=== PATIENT | male | born 1955 | race Caucasian/White ===

== ENCOUNTER 2018-06-17 07:42 | Day surgery (SDC) | payer BC ==
[2018-06-17] MEDS ORDERED: Aspirin 81 MG Tab.Chew PO ONE (07:51)
--- NOTE | 2018-06-17 08:12 | EDM.PDOC ---
ED HPI GENERAL MEDICAL PROBLEM - General Stated Complaint: RIGHT SIDED CHEST PAIN Time Seen by Provider: 06/17/18 07:48 Source of Information: Reports: Patient History Limitations: Reports: No Limitations - History of Present Illness INITIAL COMMENTS - FREE TEXT/NARRATIVE: This 62 yo male patient reports to the ED with right sided chest pain. The patient reports his pain started about 40 minutes prior to coming to the ED. The patient reports he has never had pain like this in his chest before. The patient reports the pain radiates to his right posterior shoulder. The patient reports he has not taken anything specifically for his current pain. The patient reports he was seen previously for possible gallbladder problems, but he has not had surgery. The patient reports he had toast with butter this morning for breakfast. Onset: Today Duration: Minutes: (40), Constant Location: Reports: Chest (right sided of chest radiating to right posterior shoulder) Quality: Reports: Ache, Sharp, Stabbing Severity: Severe Improves with: Reports: None Worsens with: Reports: None Context: Reports: Other Associated Symptoms: Reports: Chest Pain Treatments DISPLAY ASSOCIATE: Reports: NSAIDS (Aleve) Right Chest Pain Score (Numeric/FACES): 8 - Related Data Allergies Allergy/AdvReac Type Severity Reaction Status Date / Time pravastatin [From Pravachol] Allergy Joint Pain Verified 06/17/18 08:13 Home Meds: Home Meds Losartan [Cozaar] 100 mg PO DAILY 11/10/13 [History] Meclizine [Antivert] 12.5 mg PO Q4HR PRN 11/10/13 [History] Acetaminophen [Acetaminophen ER] 1,300 mg PO DAILY PRN 09/19/15 [History] Metoprolol Succinate [Toprol XL] 50 mg PO DAILY 09/19/15 [History] Methylcellulose [Citrucel] 1 dose PO DAILY PRN 06/05/16 [History] Tamsulosin HCl [Flomax] 0.4 mg PO DAILY PRN 06/06/16 [History] Finasteride 5 mg PO DAILY 06/17/18 [History] Oxybutynin Chloride [Ditropan Xl] 10 mg PO DAILY 06/17/18 [History] Past Medical History HEENT History: Reports: Impaired Vision Cardiovascular History: Reports: CAD, High Cholesterol, Hypertension Respiratory History: Reports: None Gastrointestinal History: Reports: GERD, GI Bleed Genitourinary History: Reports: BPH, Urinary Incontinence Musculoskeletal History: Reports: Arthritis Neurological History: Reports: None Psychiatric History: Reports: None Endocrine/Metabolic History: Reports: Obesity/BMI 30+ Hematologic History: Reports: Anemia, Blood Transfusion(s) Immunologic History: Reports: None Oncologic (Cancer) History: Reports: None Dermatologic History: Reports: None - Infectious Disease History Infectious Disease History: Reports: Chicken Pox, Measles, Mumps - Past Surgical History HEENT Surgical History: Reports: Oral Surgery, Other (See Below) Cardiovascular Surgical History: Reports: Other (See Below) GI Surgical History: Reports: Appendectomy, Colonoscopy, EGD, Other (See Below) Musculoskeletal Surgical History: Reports: Arthroscopic Knee Social & Family History - Caffeine Use Caffeine Use: Reports: Coffee Other Caffeine Use: AVERAGE OF 3 CUPS OF COFFEE DAILY - Living Situation & Occupation Living situation: Reports: , with Spouse Occupation: Employed ED ROS GENERAL - Review of Systems Review Of Systems: ROS reveals no pertinent complaints other than HPI. ED EXAM, GENERAL - Physical Exam Exam: See Below Exam Limited By: No Limitations General Appearance: Alert, WD/WN, Moderate Distress Eye Exam: Bilateral Eye: EOMI, Normal Inspection, PERRL Ears: Normal External Exam Nose: Normal Inspection, Normal Mucosa, No Blood Throat/Mouth: Normal Inspection, Normal Lips, Normal Teeth, Normal Gums, Normal Oropharynx, Normal Voice, No Airway Compromise Head: Atraumatic, Normocephalic Neck: Normal Inspection, Supple, Non-Tender, Full Range of Motion Respiratory/Chest: No Respiratory Distress, Lungs Clear, Normal Breath Sounds, No Accessory Muscle Use, Chest Non-Tender Cardiovascular: Normal Peripheral Pulses, Regular Rate, Rhythm, No Edema, No Gallop, No JVD, No Murmur, No Rub, Other (Patient rates his right sided chest pain at a 3/10 at the time of examination.) GI/Abdominal: Normal Bowel Sounds, Soft, Non-Tender, No Organomegaly, No Distention, No Abnormal Bruit, No Mass (Male) Exam: Deferred Rectal (Males) Exam: Deferred Back Exam: Normal Inspection, Full Range of Motion, NT Extremities: Normal Inspection, Normal Range of Motion, Non-Tender, Normal Capillary Refill, No Pedal Edema Neurological: Alert, Oriented, CN II-XII Intact, Normal Cognition, Normal Gait, Normal Reflexes, No Motor/Sensory Deficits Psychiatric: Normal Affect, Normal Mood Skin Exam: Warm, Dry, Intact, Normal Color, No Rash Lymphatic: No Adenopathy Course - Vital Signs Last Recorded V/S: Last Vital Signs Temp 36.6 C 06/17/18 07:45 Pulse 69 06/17/18 07:45 Resp 18 06/17/18 07:45 BP 168/79 H 06/17/18 07:45 Pulse Ox 98 06/17/18 07:45 - Orders/Labs/Meds Orders: Active Orders 24 hr Category Date Time Status EKG Documentation Completion [RC] URGENT Care 06/17/18 07:44 Active ceFAZolin [Ancef] 2 gm Med 06/17/18 10:57 Ordered Premix Bag 1 bag IV ONETIME Medication Orders Cefazolin Sodium/Dextrose 2 gm (/ Premix) 50 mls @ 100 mls/hr IV ONETIME ONE Stop: 06/17/18 11:26 Labs: Laboratory Tests 06/17/18 06/17/18 Range/Units 07:55 07:55 WBC 6.3 (5.0-10.0) 10^3/uL RBC 5.14 (4.6-6.2) 10^6/uL Hgb 15.6 D (14.0-18.0) g/dL Hct 44.8 (40.0-54.0) % MCV 87.2 (80-100) fL MCH 30.4 (27.0-34.0) pg MCHC 34.8 (33.0-35.0) g/dL Plt Count 182 (150-450) 10^3/uL Neut % (Auto) 62.9 (42.2-75.2) % Lymph % (Auto) 23.9 (20.5-50.1) % [place] % (Auto) 9.6 H (2-8) % Eos % (Auto) 3.0 (1.0-3.0) % Baso % (Auto) 0.6 (0.0-1.0) % Sodium 133 L (135-145) mmol/L Potassium 4.0 (3.6-5.0) mmol/L Chloride 101 (101-111) mmol/L Carbon Dioxide 21.0 (21.0-31.0) mmol/L Anion Gap 15.0 BUN 22 H (7-18) mg/dL Creatinine 0.8 (0.6-1.3) mg/dL Est Cr Clr Drug Dosing TNP Estimated GFR (MDRD) > 60 BUN/Creatinine Ratio 27.50 Glucose 151 H (74-105) mg/dL Calcium 8.6 (8.4-10.2) mg/dl Total Bilirubin 0.8 (0.2-1.0) mg/dL AST 31 (10-42) IU/L ALT 24 (10-60) IU/L Alkaline Phosphatase 61 (42-121) IU/L Troponin I < 0.02 (0.00-0.02) ng/ml Total Protein 6.4 L (6.7-8.2) g/dl Albumin 4.0 (3.2-5.5) g/dl Globulin 2.4 Albumin/Globulin Ratio 1.67 Amylase 102 H (28-100) U/L Lipase 38 (22-51) U/L Meds: Medications Generic Name Dose Route Start Last Admin Trade Name Freq PRN Reason Stop Dose Admin Cefazolin Sodium/Dextrose 2 gm 50 mls @ 100 mls/hr 06/17/18 10:57 / Premix IV 06/17/18 11:26 ONETIME ONE Discontinued Medications Generic Name Dose Route Start Last Admin Trade Name Freq PRN Reason Stop Dose Admin Aspirin 324 mg 06/17/18 07:51 06/17/18 07:58 Aspirin PO 06/17/18 07:52 324 mg ONETIME ONE Administration Morphine Sulfate 2 mg 06/17/18 08:20 06/17/18 08:29 Morphine IVPUSH 06/17/18 08:21 2 mg ONETIME ONE Administration Morphine Sulfate 2 mg 06/17/18 09:44 06/17/18 09:47 Morphine IVPUSH 06/17/18 09:45 2 mg ONETIME ONE Administration - Re-Assessments/Exams Free Text/Narrative Re-Assessment/Exam: 06/17/18 11:02 Dr. Flowers came to the ED to evaluate the patient. The patient will be scheduled to have a lap chani today with Dr. Flowers. Departure - Departure Time of Disposition: 11:02 Disposition: Admitted As Inpatient 65 Condition: Fair Clinical Impression: Gall stone Qualifiers: Cholecystitis presence: with cholecystitis Cholecystitis acuity: acute Biliary obstruction: with biliary obstruction Qualified Code(s): K80.01 - Calculus of gallbladder with acute cholecystitis with obstruction Care Plan Goals: Discussed the examination, history, lab, ultrasound and x-ray results with Dr. Flowers. Dr. Flowers accepted the patient for continued treatment at [facility] in [place]. - My Orders Last 24 Hours: My Active Orders 06/17/18 07:44 EKG Documentation Completion [RC] URGENT 06/17/18 10:57 ceFAZolin [Ancef] 2 gm Premix Bag 1 bag IV ONETIME - Assessment/Plan Last 24 Hours: My Active Orders 06/17/18 07:44 EKG Documentation Completion [RC] URGENT 06/17/18 10:57 ceFAZolin [Ancef] 2 gm Premix Bag 1 bag IV ONETIME
--- NOTE | 2018-06-17 08:12 | CR ---
Clinical history: 62-year-old male with history coronary artery disease and now chest pain reported on previous CT scan chest June 2016 to have "asymmetric elevation left hemidiaphragm with underlying lower lobe atelectasis". Reevaluate please. Interpretation: Poor inspiratory effort. Normal cardiac silhouette without cephalization of flow signs of alveolar edema or dependent new pleural fluid accumulation. Chronic left lower lobe atelectasis (bronchiectasis?). Clinical aspiration? No new lung mass, hilar lymphadenopathy or focal lobar pneumonia when compared to CT June 2016. Patito thorax unremarkable. No pneumothorax.
[2018-06-17] MEDS ORDERED: Morphine 2 MG/ML Syringe IVPUSH ONE ×2 (08:20→09:44)
[2018-06-17 08:22] LABS: CHLORIDE,CL 101 mmol/L (101-111); SODIUM,NA 133 mmol/L (135-145)
[2018-06-17] MEDS ORDERED: ceFAZolin 2 GM in Premix Bag 1 BAG IV ONE (10:57)
--- NOTE | 2018-06-17 11:33 | US ---
CLINICAL HISTORY: 62-year-old male with chest and right upper quadrant pain. INTERPRETATION: Abnormal. Tiny dependent intraluminal echogenic "shadowing" gallstones impacted neck of the gallbladder. Gallbladder normal size and anatomic configuration with uniformly thin wall shows no sign of pericystic fluid or mucosal wall polyp. Homogeneously echodense (fatty) liver without discrete intrahepatic cystic or solid mass lesion. No abnormal dilatation of the intra or extrahepatic biliary ducts (common bile duct measures 5 mm). Pancreas sonographically unremarkable, i.e., normal. Normal right kidney. No ascites. CONCLUSION: Cholelithiasis. Fatty liver.
--- NOTE | 2018-06-17 11:52 | HP ---
INTRODUCTION: This 62-year-old male presented to the emergency room today with right upper quadrant and right lower chest pain. Cardiac workup was negative. An ultrasound of the gallbladder showed a single large impacted stone in Alice pouch. He does not have an elevated white blood cell count, and his liver enzymes are normal. He has had several attacks like this before. This one right now has subsided since the patient has gotten pain relief. ALLERGIES: The patient has allergies to statins. MEDICATIONS: Current medications are: Metoprolol and lisinopril for blood pressure. PAST SURGICAL HISTORY: Includes sigmoidectomy for his diverticulitis. FAMILY HISTORY AND SOCIAL HISTORY: The patient lives here in [place]. He works as a software maintenance engineer. Does not smoke. REVIEW OF SYSTEMS: Negative for all systems. Cardiovascular: Normal. He has no emphysema, COPD, or shortness of breath. Cardiac: Normal. He has no chest pain. PHYSICAL EXAMINATION: HEENT: Normal. The patient wears glasses and sees adequately. Chest: Lungs are clear bilaterally. Heart: Normal sinus rhythm without murmur. Abdomen: Soft and nontender. No masses are noted. He has a lower midline abdominal incision from his colectomy. Extremities: Good range of motion. Neurologic: Intact. ASSESSMENT: Chronic cholecystitis and cholelithiasis with possible impaction of a gallstone. PLAN: I discussed the risks, benefits, and expected outcomes of proceeding with a laparoscopic cholecystectomy. We will do this today in the operating room. [facility] /[id number]
[2018-06-17] MEDS ORDERED: Acetaminophen/oxyCODONE 325-5 MG Tab PO PRN (14:33)
[2018-06-17] MEDS ORDERED: Ondansetron 4 MG/2 ML SDV IVPUSH PRN (14:33)
[2018-06-17] MEDS ORDERED: Morphine 2 MG/ML Syringe IVPUSH PRN (14:33)
[2018-06-17] MEDS ORDERED: Glycopyrrolate 0.2 MG/ML 2 ML SDV IV ONE (14:34)
[2018-06-17] MEDS ORDERED: Ondansetron 4 MG/2 ML SDV IV ONE (14:34)
[2018-06-17] MEDS ORDERED: Propofol 200 MG/20 ML SDV IV ONE (14:34)
[2018-06-17] MEDS ORDERED: Rocuronium 50 MG/5 ML Vial IV ONE (14:34)
[2018-06-17] MEDS ORDERED: fentaNYL 250 MCG/5 ML SDV IV ONE (14:34)
[2018-06-17] MEDS ORDERED: Midazolam 1 MG/ML 2 ML SDV IV ONE (14:34)
[2018-06-17] MEDS ORDERED: Neostigmine Methylsulfate 10 MG/10 ML MDV ONE (14:34)
[2018-06-17] MEDS ORDERED: Lactated Ringers 1,000 ML IV ONE (14:34)
[2018-06-17] MEDS ORDERED: Dexamethasone 4 MG/ML SDV IV ONE (14:34)
[2018-06-17] MEDS ORDERED: Lidocaine 2% 20 ML MDV INJECT ONE (14:34)
[2018-06-17] MEDS ORDERED: Ketorolac 30 MG/ML SDV IVPUSH ONE (14:34)
[2018-06-17] MEDS ORDERED: Sodium Chloride 0.9% 10 ML Syringe FLUSH PRN (14:36)
--- NOTE | 2018-06-17 15:27 | OR ---
DATE: 06/17/2018 PREOPERATIVE DIAGNOSES: 1. Chronic cholecystitis. 2. Cholelithiasis. POSTOPERATIVE DIAGNOSES: 1. Chronic cholecystitis. 2. Cholelithiasis. PROCEDURE: Laparoscopic cholecystectomy. ANESTHESIA: General. ESTIMATED BLOOD LOSS: Minimal. SPECIMEN: Gallbladder and stone. OPERATIVE FINDINGS: Normal-appearing gallbladder with 1 small stone. INDICATION FOR PROCEDURE: This 62-year-old male presented to the emergency room today with a [id number] right upper quadrant and lower right chest pain. Cardiac workup and chest workup in the emergency room were normal. An ultrasound of the gallbladder showed an impacted stone in Alice pouch. His liver enzymes are normal, and his white blood cell count was also normal. PROCEDURE IN DETAIL: After adequate preparation, an alternative access port was used to place a 5-mm trocar in the right upper quadrant under direct vision. Three other trocars were placed in the abdomen, and the abdomen was insufflated. Examination of the abdomen showed some periduodenal adhesions to the lower portion of the gallbladder. These were taken off by cautery dissection. The cystic triangle structures were dissected free, and the duct and artery were each triply clipped and divided. The gallbladder was then taken off the liver bed using blunt, sharp, and Bovie dissection. There was no spillage of bile. The gallbladder was then taken out through the epigastric trocar site. The abdomen was irrigated in the right upper quadrant and suctioned clear, and the abdomen was desufflated. The skin was closed with Monocryl. Opening the gallbladder in the operating room did show a small single stone and abnormal-appearing bile. [facility] /[id number]
[2018-06-18 08:02] VITALS: BP 137/68
--- NOTE | 2018-06-18 08:22 | PCM.SN ---
- Free Text/Narrative Note: Stable POD #1. PO tolerated well. Pain controlled. Wounds clean and dry. Discharge instructions given. No restrictions on diet or activity. Can discharge.
== END 2018-06-18 10:30 | disposition home or self-care (01) ==
LOC: DL.SDS 07:42 → DL.MS 14:33 → DL.SDS 14:33
PROVIDERS: ATTEND Surgery
DX: K80.10 Calculus of gallbladder with chronic cholecystitis without obstruction (principal); I10 Essential (primary) hypertension; E66.9 Obesity, unspecified; Z68.30 Body mass index [BMI] 30.0-30.9, adult; I25.10 Atherosclerotic heart disease of native coronary artery without angina pectoris; Z79.899 Other long term (current) drug therapy; E78.00 Pure hypercholesterolemia, unspecified; Z88.8 Allergy status to other drugs, medicaments and biological substances
CPT/HCPCS: 36415; 71045; 76705; 80053; 82150; 83690; 84484; 85025; 93005; 96365; 96375; 96376; 99285; A9270-GY; J0690; J1100; J1885; J2250; J2270; J2405; J2704; J2710; J3010; J3490; J7120

== ENCOUNTER 2022-08-22 17:47 | Emergency (ER) | payer BC ==
[2022-08-22 18:53] VITALS: BP 147/81; PULSE 79
== END 2022-08-22 20:01 | disposition home or self-care (01) ==
LOC: DL.ED 17:47
DX: S13.4XXA Sprain of ligaments of cervical spine, initial encounter (principal); I25.10 Atherosclerotic heart disease of native coronary artery without angina pectoris; E78.00 Pure hypercholesterolemia, unspecified; I10 Essential (primary) hypertension; K21.9 Gastro-esophageal reflux disease without esophagitis; N40.0 Benign prostatic hyperplasia without lower urinary tract symptoms; E66.9 Obesity, unspecified; Z68.35 Body mass index [BMI] 35.0-35.9, adult; Z88.8 Allergy status to other drugs, medicaments and biological substances; Z79.899 Other long term (current) drug therapy; Z86.16 Personal history of COVID-19; W01.198A Fall on same level from slipping, tripping and stumbling with subsequent striking against other object, initial encounter
CPT/HCPCS: 70450; 72125; 73600-LT; 99283; 99284